=== PATIENT | male | born 1970 | race Caucasian/White ===

== ENCOUNTER 2018-02-27 07:15 | Day surgery (SDC) | payer OTHER ==
[~2018-02-27 07:15] MED LIST: DIPHENHYDRAMINE HCL 50 MG/ML VIAL ONE; EPINEPHRINE INJ 1 MG/10 ML DISP.SYRIN ONE; FLUMAZENIL INJ 0.5 MG/5 ML VIAL ONE; GLUCAGON,HUMAN RECOMB 1 MG INJ ONE; NALOXONE HCL INJ/PF 0.4 MG/1 ML SDV ONE; ONDANSETRON HCL INJ/PF 4 MG/2 ML SDV ONE
[2018-02-27] MEDS: MIDAZOLAM 2 MG/2 ML INJ ONE ×2 (07:57→08:02)
[2018-02-27] MEDS: FENTANYL CITRATE INJ/PF 100 MCG/2 ML AMPUL ONE ×3 (07:59→08:04)
--- NOTE | 2018-02-27 08:18 | Operative Report ---
Operative Report DATE OF SURGERY: 02/27/18 Operative Report: The risks, benefits and alternatives of the procedure including risks of bleeding, perforation requiring surgery are explained to the patient in detail and informed consent is obtained. Patient is brought back to the endoscopy suite and placed in a left, lateral decubital position. Timeout was called. Conscious sedation was provided. A rectal examination is done which did not reveal any masses, tears or fissures. An Olympus videoscope was inserted into the patient's rectum. The scope was then carefully guided all the way to the cecum. The skin was identified by the usual anatomical landmarks including the ileocecal valve as well as the appendiceal office. Photodocumentation is obtained. Scope was then sequentially pulled back via the rest segments of the colon including the ascending colon, hepatic flexure, transverse colon, splenic flexure, descending colon and finally into the rectosigmoid portions of the colon. Retroflexion maneuvers performed. PREOPERATIVE DIAGNOSIS: Colorectal cancer screening POSTOPERATIVE DIAGNOSIS: Sigmoid polyp status post removal with biopsy forceps. Mild diverticulosis OPERATION: Colonoscopy with biopsy SURGEON: DEVENDRA LIANG ANESTHESIA: Moderate Sedation - 4 mg of Versed, 100 mcg of fentanyl. Conscious sedation monitoring time 30 minutes. TISSUE REMOVED OR ALTERED: As noted above. COMPLICATIONS: None. ESTIMATED BLOOD LOSS: None. INTRAOPERATIVE FINDINGS: As noted above. PROCEDURE: Patient tolerated the procedure well. No immediate postprocedure complications are noted. Patient discharged in good condition. Discharge date 02/27/2018. Discharge diet: Regular. Discharge activity: Regular. 2-3 week follow-up to discuss findings. Patient is instructed to call the office or proceed to the emergency room should there be any further problems or questions. 5 year surveillance colonoscopy.
[2018-02-27 09:32] VITALS: BP 116/85
== END 2018-02-27 09:20 | disposition home or self-care (01) ==
LOC: END 07:15
PROVIDERS: ATTEND Internal Medicine Gastroenterology
DX: D12.5 Benign neoplasm of sigmoid colon (principal); K57.30 Diverticulosis of large intestine without perforation or abscess without bleeding; E78.5 Hyperlipidemia, unspecified
CPT/HCPCS: 45380; 88305 ×2; J2250; J3010; J0171; J1200; J1610; J2310; J2405; J3490

== ENCOUNTER 2019-09-10 08:07 | Day surgery (SDC) | payer OTHER ==
[2019-09-10] MEDS ORDERED: FENTANYL CITRATE INJ/PF 100 MCG/2 ML AMPUL ONE (09:23)
[2019-09-10] MEDS ORDERED: ONDANSETRON HCL INJ/PF 4 MG/2 ML SDV ONE (09:23)
[2019-09-10] MEDS ORDERED: MIDAZOLAM 2 MG/2 ML INJ ONE (09:23)
[2019-09-10] MEDS ORDERED: BUPIVACAINE HCL 0.5 % INJ/PF 30 ML SDV ONE ×2 (09:23→09:32)
[2019-09-10] MEDS ORDERED: LIDOCAINE 2% INJ (20 MG/ML) 20 ML MDV ONE ×2 (09:23→09:32)
[2019-09-10] MEDS ORDERED: KETOROLAC TROMETHAMINE 60 MG/2 ML SDV ONE (09:24)
[2019-09-10] MEDS ORDERED: PROPOFOL INJ 200 MG/20 ML VIAL IV ONE (09:24)
[2019-09-10] MEDS: NORMAL SALINE INJ/PF 0.9% 10 ML SDV ONE ×2 (11:00)
[2019-09-10] MEDS: POLYMYXIN B SULFATE INJ 500000 UNIT VIAL ONE ×2 (11:00)
[2019-09-10] MEDS: BACITRACIN INJ 50,000 UNIT VIAL ONE ×2 (11:00)
--- NOTE | 2019-09-10 11:55 | Operative Report ---
Operative Report DATE OF SURGERY: 09/10/19 PREOPERATIVE DIAGNOSIS: Sherwood's neuroma third interspace left foot. POSTOPERATIVE DIAGNOSIS: Same. OPERATION: Neuroma decompression third interspace left foot. SURGEON: JOSSUE GLASS BOTTOMER OPERATOR: CAMELIA FUENTES ANESTHESIA: LMAC TISSUE REMOVED OR ALTERED: none COMPLICATIONS: None. ESTIMATED BLOOD LOSS: Less than 0.5 mL's. PROCEDURE: On 09/10/2019 patient was admitted surgery care with complaint of a painful left foot. Patient was taken to the operating room where following intravenous sedation and regional local anesthesia patient's left foot and leg were prepped and draped in a sterile manner. Pneumatic tourniquet was placed proximal to the ankle malleoli, a timeout was then performed verifying patient's name, surgery site, anesthesia staff and changes with no variations. The tourniquet was inflated to a level of 250 mmHg following the application of Esmarch bandage and the Esmarch was removed and the following procedure was performed. Attention was directed to the dorsal aspect of the patient's third intermetatarsal space where the third and fourth metatarsal heads were marked with a skin scribe. An incision was then placed directly in the midline between these markings and deepened through subcutaneous tissue and superficial fascia, all bleeding vessels were clamped, ligated or bovied as necessary for hemostasis. Blunt dissection was carried down to the intermetatarsal ligament, which is identified and then transected with the bipolar cautery. A laminar service center coordinator was then inserted and the third and fourth metatarsals were retracted for visualization of the interspace. Blunt dissection was further carried out revealing a large intermetatarsal neuroma just distal to the intermetatarsal ligament. Using sharp and blunt dissection an external neural lysis was then performed on all digital branches. The nerve fibers were followed as far plantarly as possible and the medial and lateral branches of the posterior tibial nerve was readily identified and appeared to be normal in appearance. There were multiple digital nerve branches extending distally into the adjacent digits. It was felt that an adequate decompression and neuralysis had been performed and the site was then flushed with copious amounts of sterile antibiotic solution and inspected for any remaining soft tissue debris with none being noted. At that time the superficial fascial layers were coapted and maintained with simple interrupted suture of 4-0 Vicryl. The skin incision was then coaptated and maintained with interrupted horizontal mattress suture of 5-0 nylon. A sterile dressing consisting of karimi silk 4 x 4's conformer Kerlix and Coban was applied to the patient's left foot. The tourniquet was rapidly deflated capillary filling time was noted to be instantaneous to all digits. The patient tolerated the surgery anesthesia well and was taken recovery room further monitored by the anesthesia department.
--- NOTE | 2019-09-10 11:57 | PDOC DISCHARGE SUMMARY ---
Discharge Summary-[facility] Discharge Summary: Patient was admitted surgery care on 09/10/2019 with complaint of a painful left foot. 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 Patient underwent surgical decompression of the neuroma with external neural lysis. She tolerated the surgery and procedure well and was later discharged from surgery care with a prescription for oxycodone 5 mg with 300 mg acetaminophen. Option was E scribed to [facility] pharmacy. Patient was given postoperative surgical shoe and postop instructions to include rest, ice, and elevation. Patient is to limit weightbearing the next 48 hours but may put limit amount of weight on his heel. He was given a follow-up appointment for 5 days.
== END 2019-09-10 12:24 | disposition home or self-care (01) ==
LOC: SC 08:07
PROVIDERS: ATTEND Preventive Medicine Undersea and Hyperbaric Medicine
DX: G57.62 Lesion of plantar nerve, left lower limb (principal)
CPT/HCPCS: 01470; 28899; J2250; J3490 ×5; J1885; J3010; J2405; J2704; 1470

== ENCOUNTER 2020-01-21 09:53 | Day surgery (SDC) | payer OTHER ==
[2020-01-21] MEDS ORDERED: LIDOCAINE 2% INJ-PF (20 MG/ML) 10 ML AMPUL ONE (10:45)
[2020-01-21] MEDS ORDERED: ONDANSETRON HCL INJ/PF 4 MG/2 ML SDV ONE (10:46)
[2020-01-21] MEDS ORDERED: MIDAZOLAM 2 MG/2 ML INJ ONE (10:46)
[2020-01-21] MEDS ORDERED: FENTANYL CITRATE INJ/PF 100 MCG/2 ML AMPUL ONE (10:46)
[2020-01-21] MEDS ORDERED: DEXMEDETOMIDINE INJ 80 MCG/20 ML VIAL IV ONE (10:46)
[2020-01-21] MEDS ORDERED: FAMOTIDINE INJ/PF 20 MG/2 ML SDV IV ONE (10:47)
[2020-01-21] MEDS ORDERED: PROPOFOL INJ 200 MG/20 ML VIAL IV ONE (10:47)
[2020-01-21] MEDS ORDERED: LIDOCAINE 2% INJ (20 MG/ML) 20 ML MDV ONE (10:52)
[2020-01-21] MEDS: BUPIVACAINE HCL 0.5 % INJ/PF 30 ML SDV ONE ×2 (11:25→11:55)
[2020-01-21] MEDS: NORMAL SALINE INJ/PF 0.9% 10 ML SDV ONE ×2 (12:37)
[2020-01-21] MEDS: POLYMYXIN B SULFATE INJ 500000 UNIT VIAL ONE ×2 (12:37)
[2020-01-21] MEDS: BACITRACIN INJ 50,000 UNIT VIAL ONE ×2 (12:37)
--- NOTE | 2020-01-21 13:15 | Operative Report ---
Operative Report DATE OF SURGERY: 01/21/20 PREOPERATIVE DIAGNOSIS: Sherwood's neuroma third interspace left foot. POSTOPERATIVE DIAGNOSIS: Same. OPERATION: Excision of neuroma third interspace left foot. SURGEON: JOSSUE SAVAGE 1ST PYROMETALLURGICAL ENGINEER: CAMELIA FUENTES ANESTHESIA: LMAC TISSUE REMOVED OR ALTERED: Nerve tissue from the third interspace of the left foot. COMPLICATIONS: None. ESTIMATED BLOOD LOSS: Less than 1 mL. PROCEDURE: On 01/21/2020 patient was admitted surgery care with complaint of a painful left foot. Patient was taken to the operating where, following intravenous sedation and regional local anesthesia the patient's left foot and leg were prepped and draped in the usual sterile manner. Ankle tourniquet was placed just proximal to the ankle malleoli, an Esmarch was appliedto the foot and the tourniquet was inflated level of 250 mmHg for hemostasis. The Esmarch was removed and sterile draping is completed. Attention was then directed to the dorsal aspect of the third intermetatarsal space of the patient's left foot. There is noted be a previous scar from prior failed neural decompression. Incision was made through the previous scar and was deepened through subcutaneous tissue and superficial fascia, via sharp and blunt dissection. All bleeding vessels were clamped, ligated and bovied as necessary for hemostasis. Blunt dissection was further taken into the deep interspace where there is noted be a large white glistening mass which appeared to be of neural type tissue. The mass was followed distally to the adjacent digits the lateral aspect of the third toe, and the medial aspect of the fourth toe, nerve tissue was transected as far distally as possible. Dissection was then carried to their proximal direction into the interspace, and into the area adjacent to the metatarsal heads. Nerve tissue was freed from its all surrounding soft tissue attachments and at that time there is identified several neural branches. This most likely represented the medial and lateral branches of the tibial nerve. These nerve branches were then redirected through the interosseous/lubrical muscles between the third and fourth metatarsals. Utilizing a 5-0 nylon suture the epineurium of the nerve branches were then sutured to the adjacent muscle tissue. At that time any remaining neural tissue was then sharply excised and sent for pathological examination. The wound was then flushed with copious amounts of sterile antibiotic solution and inspected for any remaining soft tissue debris, with none being noted. It was felt at this time that there metatarsal neuroma was completely excised and the procedure was complete. Then the superficial fascia was coaptated and maintained with interrupted simple suture of 4-0 Vicryl. The skin incision was then coapted and maintained with interrupted horizontal mattress suture of 5-0 nylon. A Sterile dressing consisting of karimi silk, 4 x 4's, conform, and Coflex was applied to the patient's left foot. The tourniquet was deflated capillary filling time was noted to be instantaneous to digits 1-3 and 5, and there was a slight delay of less than 1 minute for capillary filling time returned in the fourth digit. Patient appeared to tolerate the surgery and anesthesia well and at that time the patient was then taken to the recovery further monitoring by history department.
== END 2020-01-21 13:46 | disposition home or self-care (01) ==
LOC: SC 09:53
PROVIDERS: ATTEND Preventive Medicine Undersea and Hyperbaric Medicine
DX: G57.62 Lesion of plantar nerve, left lower limb (principal); G47.33 Obstructive sleep apnea (adult) (pediatric); Z03.818 Encounter for observation for suspected exposure to other biological agents ruled out
CPT/HCPCS: 87635; 88305 ×2; 28080; J2250; J3490 ×7; J3010; J2405; J2704; S0028; C9803; 1470

== ENCOUNTER 2020-05-12 08:09 | Day surgery (SDC) | payer OTHER ==
[2020-05-12] MEDS ORDERED: MIDAZOLAM 2 MG/2 ML INJ ONE (09:40)
[2020-05-12] MEDS ORDERED: FENTANYL CITRATE INJ/PF 100 MCG/2 ML AMPUL ONE (09:40)
[2020-05-12] MEDS ORDERED: LIDOCAINE 2% INJ-PF (20 MG/ML) 10 ML AMPUL ONE (09:40)
[2020-05-12] MEDS ORDERED: PROPOFOL INJ 200 MG/20 ML VIAL IV ONE ×2 (09:41→11:48)
[2020-05-12] MEDS ORDERED: LIDOCAINE 2% INJ (20 MG/ML) 20 ML MDV ONE (09:43)
[2020-05-12] MEDS ORDERED: BUPIVACAINE HCL 0.5 % INJ/PF 30 ML SDV ONE (09:43)
[2020-05-12] MEDS: NORMAL SALINE INJ/PF 0.9% 10 ML SDV ONE ×2 (10:20→11:13)
[2020-05-12] MEDS: POLYMYXIN B SULFATE INJ 500000 UNIT VIAL ONE ×2 (11:13)
[2020-05-12] MEDS: BACITRACIN INJ 50,000 UNIT VIAL ONE ×2 (11:13)
[2020-05-12] MEDS ORDERED: DEXAMETHASONE SOD PHOSPHATE INJ 4 MG/1 ML VIAL ONE (11:29)
[2020-05-12] MEDS: HYDROMORPHONE HCL INJ/PF 2 MG/ML AMPULE ONE ×2 (12:22→12:39)
--- NOTE | 2020-05-12 12:23 | Operative Report ---
Operative Report DATE OF SURGERY: 05/12/20 PREOPERATIVE DIAGNOSIS: Neuroma right foot fourth intermetatarsal space. POSTOPERATIVE DIAGNOSIS: Pain. OPERATION: Excision neuroma fourth interspace right foot. SURGEON: JOSSUE GLASS BASKET FILLER: CAMELIA FUENTES ANESTHESIA: LMAC COMPLICATIONS: None. ESTIMATED BLOOD LOSS: Less than 5 mL. PROCEDURE: 05/12/2020 patient is surgery care for with complaint of painful right foot. Patient was taken operating room following intravenous sedation and regional local anesthesia the patient's right foot and leg were prepped and draped in usual sterile manner. Ankle tourniquet is placed just proximal ankle malleoli, Esmarch was applied to the foot and the tourniquet was inflated to level of 250 mmHg for hemostasis. Esmarch was removed sterile draping was completed. Attention was directed to the dorsal aspect of the fourth intermetatarsal space of the patient's right foot. Incision was made between the fourth and fifth metatarsal heads deepened through subtenons tissues superficial fascia all bleeding vessels were clamped ligated and bovied as necessary for hemostasis. Utilizing blunt dissection was carried down the deep interspace there is noted be a large white glistening mass which appeared to be of neural type tissue. The mass was followed distally to the Dacian adjacent digits lateral aspect of the fourth medial aspect of the fifth toe, nerve tissue was transected as far distally as possible. Dissection was then carried proximally in direction interspace and into the area adjacent to the metatarsal heads. All nerve tissue was freed from the surrounding soft tissues attachments and at that time several branches were identified. These branches were further freed and then redirected through the interosseous muscle between the fourth and fifth metatarsals. Utilizing 5-0 nylon suture the epineurium nerve branches then search sutured to the adjacent muscle tissue. The entire nerve and was completely buried within the interosseous muscles. At that time there was flushed with copious amounts of sterile antibiotic solution inspected a soft tissue debris. This felt that the procedure was completed that this time and the tourniquet was deflated to allow identification of any bleeding vessels. All bleeding vessels were identified clamped and sutured as needed for hemostasis. When all bleeding had been adequately controlled there was then a flushed again with copious amounts of sterile antibiotic solution inspected for any bleeders with none being noted. The subcutaneous tissue was cut maintained was appropriate suture of 4-0 Vicryl. Skin incision was coapted maintained with interrupted horizontal mattress suture of 5-0 nylon. Sterile dressing consisting of Buddy silk, 4 x 4's, conform, and Coflex was applied the patient's right foot. Patient appeared to tolerate surgery anesthesia well and was taken recovery room further my by the anesthesia primary.
== END 2020-05-12 13:22 | disposition home or self-care (01) ==
LOC: SC 08:09
PROVIDERS: ATTEND Preventive Medicine Undersea and Hyperbaric Medicine
DX: G57.81 Other specified mononeuropathies of right lower limb (principal); G47.33 Obstructive sleep apnea (adult) (pediatric); Z03.818 Encounter for observation for suspected exposure to other biological agents ruled out
CPT/HCPCS: 87635; 28080; J2250; J3490 ×6; J1100; J3010; J1170; J2704; C9803